=== PATIENT | male | born 1935 | race Caucasian/White ===

== ENCOUNTER 2018-11-18 12:34 | Emergency (ER) | payer MEDICARE ==
[~2018-11-18 12:34] MED LIST: FENT1PAT61 TD; HYDR-4068 PO; LISINOPRIL PO; OMEP40CA37 PO
[2018-11-18] MEDS ORDERED: FENTANYL 25 MCG/HR PATCH TD ONE (13:03)
[2018-11-18] MEDS ORDERED: FENTANYL 75 MCG/HR PATCH TD ONE (13:04)
== END 2018-11-18 13:52 | disposition home or self-care (01) ==
LOC: EDH 12:34
DX: G89.29 Other chronic pain (principal); M54.9 Dorsalgia, unspecified; I10 Essential (primary) hypertension; J44.9 Chronic obstructive pulmonary disease, unspecified; Z87.891 Personal history of nicotine dependence

== ENCOUNTER → 2019-02-24 | Outpatient (CLI) | payer MEDICARE | END | disposition home or self-care (01) | LOC: RAH 09:46 | PROVIDERS: ATTEND Physical Medicine & Rehabilitation | DX: M41.86 Other forms of scoliosis, lumbar region (principal); M85.88 Other specified disorders of bone density and structure, other site; M25.78 Osteophyte, vertebrae; M47.817 Spondylosis without myelopathy or radiculopathy, lumbosacral region; M48.54XA Collapsed vertebra, not elsewhere classified, thoracic region, initial encounter for fracture | CPT/HCPCS: 72072; 72114 ==

== ENCOUNTER 2020-08-02 12:41 | Emergency (ER) | payer OTHER, MEDICARE ==
[~2020-08-02 12:41] MED LIST changes: +OMEP40CA13 PO; -OMEP40CA37 PO
[2020-08-02] MEDS ORDERED: FENTANYL 75 MCG/HR PATCH TD ONE (13:31)
[2020-08-02] MEDS ORDERED: FENTANYL 25 MCG/HR PATCH TD ONE (13:31)
== END 2020-08-02 13:49 | disposition home or self-care (01) ==
LOC: EDH 12:41
DX: G89.29 Other chronic pain (principal); M54.6 Pain in thoracic spine; F11.20 Opioid dependence, uncomplicated; J44.9 Chronic obstructive pulmonary disease, unspecified; I10 Essential (primary) hypertension; Z87.891 Personal history of nicotine dependence

== ENCOUNTER 2020-11-21 13:10 | Emergency (ER) | payer OTHER, MEDICARE ==
[~2020-11-21 13:10] MED LIST changes: -OMEP40CA13 PO; +OMEP40CA21 PO
[2020-11-21] MEDS ORDERED: FENTANYL 25 MCG/HR PATCH TD ONE (14:12)
== END 2020-11-21 14:26 | disposition home or self-care (01) ==
LOC: EDH 13:10
DX: M54.5 Low back pain (principal); J44.9 Chronic obstructive pulmonary disease, unspecified; I10 Essential (primary) hypertension

== ENCOUNTER 2023-05-28 10:13 | Emergency (ER) | payer OTHER, MEDICARE ==
[~2023-05-28] VITALS: Ht 162.6 cm; Wt 74.8 kg
[2023-05-28] MEDS ORDERED: FENTANYL 50 MCG/HR PATCH TD ONE (13:23)
[2023-05-28] MEDS ORDERED: FENTANYL 12 MCG/HR PATCH TD SCH (13:30)
[2023-05-28 13:52] VITALS: BP 144/65; PULSE 68; RESP 20
== END 2023-05-28 14:06 | disposition home or self-care (01) ==
LOC: EDH 10:13
DX: G89.29 Other chronic pain (principal); M54.50 Low back pain, unspecified

== ENCOUNTER 2023-12-03 08:05 | Emergency (ER) | payer OTHER, MEDICARE ==
[~2023-12-03] VITALS: Ht 162.6 cm; Wt 72.6 kg
[2023-12-03 08:07] VITALS: BP 152/61; PULSE 87; RESP 18; O2SAT 98
[2023-12-03] MEDS ORDERED: FENTANYL 50 MCG/HR PATCH TD SCH (09:10)
== END 2023-12-03 10:01 | disposition home or self-care (01) ==
LOC: EDH 08:05
DX: G89.4 Chronic pain syndrome (principal); J44.9 Chronic obstructive pulmonary disease, unspecified; I10 Essential (primary) hypertension; Z76.0 Encounter for issue of repeat prescription